=== PATIENT | female | born 1995 | race Caucasian/White ===

== ENCOUNTER 2017-05-08 03:41 | Emergency (ER) | payer OTHER ==
[~2017-05-08] VITALS: Ht 160 cm; Wt 52.3 kg
[2017-05-08 03:41] VITALS: Ht 160 cm; Wt 52.3 kg
[2017-05-08 03:50] VITALS: BP 102/68; PULSE 104; RESP 16; TEMP 99.5
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
--- NOTE | 2017-05-08 05:10 | RADRPT ---
PROCEDURE: Right hand. CLINICAL INDICATION: Pain. TECHNIQUE: Three views including PA, lateral and oblique views of the right hand were obtained. COMPARISON: None. FINDINGS: There is no fracture, dislocation or bone destruction. The joint spaces are within normal limits. Bone mineralization is within normal limits. There is no radiopaque foreign body or abnormal calcif ication. IMPRESSION: No evidence of fracture. .Steve Morfin MD, Date Time Electronically viewed and signed by .Steve Morfin MD, on 05/08/2017 05:10 .T/
== END 2017-05-08 04:45 ==
LOC: E/R 03:41
DX: M79.641 Pain in right hand (principal); R40.2252 Coma scale, best verbal response, oriented, at arrival to emergency department; Z02.89 Encounter for other administrative examinations